=== PATIENT | female | born 1975 ===

== ENCOUNTER 2018-06-26 06:04 | Day surgery (SDC) | payer OTHER ==
[2018-06-19 12:32] VITALS: BMI 32.9
[2018-06-26 06:59] LABS: BASO # 0.02 K/mm3 (0.0-2.0); BASO % 0.2 % (0.0-3.0); BLOOD UREA NITROGEN 15 mg/dL (7-21); CALCIUM 9.1 mg/dL (8.4-10.5); EOS # 0.1 (0.0-0.7); GFR NON-AFRICAN AMERICAN > 60; GRAN # 4.74 (1.4-6.5); GRAN % 52.2 % (50.0-68.0); HEMOGLOBIN 10.1 g/dL (12.0-16.0); LYMPH # 3.7 (1.2-3.4); LYMPH % 40.9 % (22.0-35.0); MEAN CELL VOLUME 81.1 fl (80.0-105.0); MEAN CORPUSCULAR HEMOGLOBIN 25.4 pg (25.0-35.0); MEAN CORPUSCULAR HGB CONC 31.4 g/dl (31.0-37.0); MEAN PLATELET VOLUME 9.3 fl (7.0-11.0); MONO # 0.5 (0.1-0.6); MONO % 5.7 % (1.0-6.0); RBC 3.97 10^6/uL (3.5-6.1); RED CELL DISTRIBUTION WIDTH 16.3 % (11.5-14.5); WHITE BLOOD COUNT 9.1 10^3/uL (4.5-11.0)
[2018-06-26 07:21] LABS: INR 0.99; PARTIAL THROMBOPLASTIN TIME 20.7 Seconds (25.1-36.5); PROTHROMBIN TIME 11.4 SECONDS (9.4-12.5)
[2018-06-26] MEDS ORDERED: Lidocaine 2% Inj (20ml) ONE (07:45)
[2018-06-26] MEDS ORDERED: Iodixanol 320 MG/ML 200 ML BOTTLE IV ONE (07:45)
[2018-06-26] MEDS ORDERED: Iodixanol 320 mg/ml 150 ml Bottle IV ONE (07:45)
[2018-06-26] MEDS ORDERED: Nitroglycerin 50mg in D5W 50 MG/250 ML BOTTLE IV ONE (07:48)
[2018-06-26] MEDS ORDERED: Midazolam 2 MG/2 ML VIAL ONE ×2 (08:22→08:42)
[2018-06-26] MEDS ORDERED: Morphine 4 mg/ml ISec IVP PRN ×2 (09:40→20:33)
[2018-06-26] MEDS: Sodium Chloride 0.45% 1,000 ML IV SCH ×3 (11:20→20:34)
[2018-06-26] MEDS: ceFAZolin 1 gm in NS 1 GM/100 ML BAG IVPB SCH ×2 (11:32→22:35)
[2018-06-26 12:19] LABS: FSH 5.8 mIU/mL
[2018-06-26 12:45] VITALS: RESP 18
[2018-06-26] MEDS: Oxycodone/Acetaminophen 5/325 mg Tab PO PRN ×2 (14:24→14:27)
[2018-06-26] MEDS ORDERED: HYDROmorphone 0.5 mg/0.5 ml ISec IVP STA (18:22)
--- NOTE | 2018-06-26 18:37 | VASCULAR ---
PROCEDURE: Uterine fibroid embolization. CLINICAL HISTORY: Multiple uterine fibroids Menorrhagia Anemia PHYSICIAN(S): Ramón Toro MD. TECHNIQUE: The relative risks and indications of the procedure were explained to the patient and consent obtained. The patient was hydrated and given antibiotics/Reglan/Toradol prior to the procedure. The patient was placed supine on the arteriogram table and the right groin prepped and draped usual sterile fashion. Conscious sedation and monitoring were provided throughout the procedure by a nurse. Via a right common femoral artery approach, a 5 [place] sheath was placed. Through the sheath and over a guidewire, a 5 [place] flush catheter was placed in the abdominal aorta at the level of the renal arteries. A PA DSA abdominal and pelvic arteriogram was performed. An angled Glidewire was advanced over the aortic bifurcation and placed in the left common femoral artery. A 5 [place] Berenstein glide catheter was advanced over the bifurcation and placed selectively in the proximal left internal iliac artery. A DSA left internal iliac arteriogram was performed. Nitroglycerin in 250 mcg aliquots was given. Over an angled Glidewire the 5 [place] Berenstein catheter was placed subselectively in the horizontal portion of the left uterine artery. A DSA left uterine arteriogram was performed. Next 1 syringe of resorbable 500-700 um particles were instilled with contrast into the left uterine artery under direct fluoroscopic observation. The endpoint of embolization was pruning of the neovascular branches to the uterus with very slow antegrade flow in the main left uterine artery. No significant off-target embolization was observed. Next a Arellano 2 catheter was reformed over the aortic bifurcation and placed subselectively into the right internal iliac artery. A DSA right internal iliac arteriogram was performed. Once again nitroglycerin in 250 mcg aliquots was given. Over an angled Glidewire the Arellano 2 catheter was placed subselectively in the horizontal portion of the right uterine artery. A DSA right uterine arteriogram was performed. Once again subselective embolization of the right uterine artery was performed with 1 syringe of 500-700 um and 1 syringe of 700-900 um resorbable particles. The end point of embolization was pruning of the neovascular uterine branches and very slow antegrade flow in the main right uterine artery. Post embolization arteriograms were obtained. The sheath was removed and hemostasis obtained. The patient tolerated the procedure well. FINDINGS: There are single renal arteries bilaterally which are widely patent. The nephrograms are symmetric and normal. The visualized aorta and iliac arteries are patent and normal in appearance. The ovarian arteries are not demonstrated on the flush aortogram. The uterine arteries are enlarged and tortuous. The uterine arteries supply a single hypervascular submucosal mass in the uterus consistent with fibroids. No obvious anomalous ovarian supply is seen to the fibroids. No significant occlusive disease is identified. IMPRESSION: 1. Successful bilateral uterine artery embolization for fibroids as described above.
[2018-06-26] MEDS ORDERED: HYDROmorphone 2 mg/ml ISec IVP PRN (19:39)
[2018-06-26 23:33] VITALS: O2SAT 98
[2018-06-27] MEDS: Sodium Chloride 0.45% 1,000 ML IV SCH (04:45)
[2018-06-27 06:58] LABS: HEMOGLOBIN 8.9 g/dL (12.0-16.0); MEAN CELL VOLUME 80.4 fl (80.0-105.0); MEAN CORPUSCULAR HEMOGLOBIN 24.6 pg (25.0-35.0); MEAN CORPUSCULAR HGB CONC 30.6 g/dl (31.0-37.0); MEAN PLATELET VOLUME 9.2 fl (7.0-11.0); RBC 3.62 10^6/uL (3.5-6.1); RED CELL DISTRIBUTION WIDTH 16.4 % (11.5-14.5); WHITE BLOOD COUNT 13.7 10^3/uL (4.5-11.0)
[2018-06-27 07:24] LABS: BLOOD UREA NITROGEN 9 mg/dL (7-21); CALCIUM 8.4 mg/dL (8.4-10.5); GFR NON-AFRICAN AMERICAN > 60
[2018-06-27] MEDS: ceFAZolin 1 gm in NS 1 GM/100 ML BAG IVPB SCH (11:08)
[2018-06-27 11:32] VITALS: BP 100/61; PULSE 73; TEMP 98.7
== END 2018-06-27 14:00 | disposition home or self-care (01) ==
LOC: SDSVAS 06:04 → 2RSO 10:56 → SDSVAS 06-27 14:00
PROVIDERS: ATTEND Radiology Vascular & Interventional Radiology
DX: D25.9 Leiomyoma of uterus, unspecified (principal); N92.0 Excessive and frequent menstruation with regular cycle; D50.0 Iron deficiency anemia secondary to blood loss (chronic)
CPT/HCPCS: 36247; 36415 ×2; 37243; 80048 ×2; 83001; 84703; 85025; 85027; 85610; 85730; 99152; 99153; C1760 ×2; C1769 ×3; C1887 ×2; C1894; C9113 ×2; J0690 ×2; J1170 ×2; J1644; J1885; J2250; J2270 ×2; J2405 ×2; J3010; J7030 ×2; Q9966; Q9967